=== PATIENT | female | born 1935 | race Caucasian/White ===

== ENCOUNTER 2025-02-01 18:47 | Outpatient (REF) | payer MEDICARE, MEDICAID, SELFPAY ==
--- OUTSIDE RECORDS SUMMARY | 2025-02-01 19:04 | XMS_ITS | Encounter Summary ---
Author Organization [employer] Address [id number] [address] [place] [address] Care Team Providers Care Recreational Counselor Name Role Phone No Pcp, No Pcp Primary Care Provider Unavailabl e Reason for Visit * Reason Onset Date Comments Referral to Neurology 01/03/2021 Encounter Details Date Type Department Care Team (Late st Contact Info) Description 01/03/2021 Telephone [facility] [address] [place] [address] Evonne Ordoñez Referral to Neurology Social History Tobacco Use Types Packs/Day Years Used Date Smoking Tobacco: Never Assessed Childcare Answer Date Recorded Childcare Unknown 03/17/2020 Employment Answer Date Recorded Employment Unknown 03/17/2020 Purpose - Life Answer Date Recorded Purpose and direction in life Unknown Comments Unknown Sex and Gender Information Value Date Recorded Sex Assigned at Not on file Legal Sex Female 5:56 PM EDT Gender Identity Not on file Sexual Orientation Not on file documented as of this encounter Miscellaneous Notes * Telephone Encounter - Evonne Ordoñez - 01/03/2021 11:07 AM EDT Received Referral to Neurology Dx: Parkinson's Disease Referred by Deyvi Kasper Referred to Dr. Polanco documented in this encounter Plan of Treatment Not on file documented as of this encounter Visit Diagnoses Not on filedocumented in this encounter Care Teams Recreational Counselor Relationship Specialty Start Date End Date No Pcp, [place] [address] PCP - General Family Medicine 03/17/20 documented as of this encounter
--- OUTSIDE RECORDS SUMMARY | 2025-02-01 19:04 | XMS_ITS | Clinical Summary ---
Author Organization [facility] Address [address], [address] [place] [address] Care Team Providers Care Merchandising Manager Name Role Phone Unavailable Primary Care Provider Unavailabl e Allergies Active Allergy Reactions Criticality Noted Date Comments Aspirin 07/28/2020 STOMACH BLEEDS Penicillins 06/28/2020 Medications carbidopa-levod opa (SINEMET) 25-100 MG per tablet 3.5 tablets by PEG Tube route 4 times daily (with meals and nightly) Give 3.5 tablet via PEG-tube 4 times a day for Parkinsons Active sotalol (BETAPACE) 120 MG tablet 120 mg by PEG Tube route 2 times daily Give 120mg via PEG-tube BID for BP Active tolterodine (DETROL) 2 MG tablet 2 mg by PEG Tube route 2 times daily Give 2mg vis PEG-tube BID for Bladder Active vitamin D (ERGOCALCIFEROL ) 1.25 MG (19289 UT) CAPS capsule Take 1 capsule by mouth once a week for 8 doses 8 capsule 06/30/19 21 Active Additional Information Patient taking differently:50,000 UnitsPEG TubeWEEKLY,Give 50,000 unit via PEG-tube one time a day every 7 days for Supplement, Reported on 07/28/2020 losartan (COZAAR) 100 MG tablet Take 1 tablet by mouth daily 30 tablet 3 07/07/19 21 Active Additional Information Patient taking differently:100 mgPEG TubeDAILY,Give 100mg via PEG-tube one time a day for BP, Reported on 07/28/2020 amLODIPine (NORVASC) 5 MG tablet 5 mg by PEG Tube route daily Give 1 tablet via PEG-tube one time a day for BP Active LORazepam (ATIVAN) 0.5 MG tablet 0.5 mg by PEG Tube route every 4 hours as needed for Anxiety. Give 0.5 mg via PEG-tube every 4 hrs as needed for agitation/anxiety Active bisacodyl (DULCOLAX) [address] 10 mg rectally daily as needed Insert 10mg rectally every 20 hrs as needed for constipation Active folic acid (FOLVITE) 1 MG tablet 1 mg by PEG Tube route daily Give 1 mg via PEG-tube one time a day for Supplement Active HYDROcodone-fide taminophen (NORCO) 5-325 MG per tablet Take 0.5 tablets by mouth every 4 hours as needed for Pain. Give 0.5 tablet via PEG-tube every 4 hrs as needed for pain for 7 days Active enoxaparin (LOVENOX) 30 MG/0.3ML injection Inject 30 mg into the skin 2 times daily Give 30mg subcutaneously BID for DVT Prophylaxis Active Mineral Oil OIL 15 mLs by PEG Tube route daily Give 15mL via PEG-tube one time a day for Bowels Active POLYETHYLENE GLYCOL 3350 PO Take 17 g by mouth daily as needed for Constipation Give 17 gram via PEG-tube every 24 hrs as needed for Constipation Active insulin detemir (LEVEMIR) 100 UNIT/ML injection vial Inject into the skin nightly Inject 20 units subcutaneously one time a day for DM Inject 10 unit subcutaneously once at bedtime for DM Active Cranberry-Vitam in C-Inulin (UTI-STAT) LIQD Take by mouth 2 times daily 30cc BID by mouth BID for preventative for 7 days Active Balsam Rolando-[place] Oil (VENELEX) OINT ointment Apply topically 3 times daily Apply to PEG-tube topically 3 times a day for PEG tube irrigation Active tuberculin 5 UNIT/0.1ML injection Inject 5 Units into the skin once Active ACETAMINOPHEN PO 20.3 mLs by PEG Tube route as needed 20.3 mL via PEG-Tube every 6hrs as needed for pain Active Cyanocobalamin 1000 MCG/15ML LIQD 1,000 mcg by PEG Tube route Give 1000mcg via PEG-tube in the morning for Supplement Active DOCUSATE SODIUM PO 5 mLs by PEG Tube route 2 times daily Give 5 mL via PEG-tube BID for constipation Active FERROUS SULFATE PO 5 mLs by PEG Tube route daily Give 5mL via PEG-tube one time a day for Supplement Active POTASSIUM CHLORIDE PO 20 mEq by PEG Tube route 2 times daily Give 20 mEq via PEG-tube BID for Supplement Active Active Problems Problem Noted Date Diagnosed Date Hyperglycemia 07/01/2020 Acute blood loss anemia 07/01/2020 SAH (subarachnoid hemorrhage) 06/29/2020 Closed comminuted intertrochanteric fracture of left femur 06/29/2020 Fall from standing 06/29/2020 Fall from standing 06/29/2020 SAH (subarachnoid hemorrhage) 06/27/2020 Displaced intertrochanteric fracture of left femur, initial encounter for closed fracture 06/27/2020 Resolved Problems Problem Noted Date Diagnosed Date Resolved Date Fall 07/29/2020 Social History Tobacco Use Types Packs/Day Years Used Date Smoking Tobacco: Former Smokeless Tobacco: Never Tobacco Cessation:Counseling Given: Yes Comments No Sex and Gender Information Value Date Recorded Sex Assigned at Not on file Legal Sex Female 11:16 AM EST Gender Identity Not on file Sexual Orientation Not on file Last Filed Vital Signs Vital Sign Reading Time Taken Comments Blood Pressure 139/55 07/07/2020 8:24 AM EST Pulse 72 07/07/2020 9:00 AM EST Temperature 36.9 C (98.4 F) 07/07/2020 8:24 AM EST Respiratory Rate 24 07/07/2020 9:00 AM EST Oxygen Saturation 93% 07/07/2020 9:00 AM EST Inhaled Oxygen Concentration - - Weight 75.8 kg (167 lb) 09/01/2020 11:12 AM EDT Height 175.3 cm (5' 9 ) 09/01/2020 11:12 AM EDT Body Mass Index 24.66 09/01/2020 11:12 AM EDT Plan of Treatment Health Maintenance Due Date Last Done Comments Depression Screen 1947 DTaP/Tdap/Td vaccine (1 - Tdap) 11/03/1954 Shingles vaccine (1 of 2) 11/03/1985 Respiratory Syncytial Virus (RSV) or age 60 yrs+ (1 - 1-dose 75+ series) 11/03/2010 Pneumococcal 50+ years Vaccine (2 of 2 - PCV20 or PCV21) 09/26/2016 09/27/2015, 09/27/2015 Flu vaccine (#1) 12/24/2024 03/17/2020, 03/2019, 05/26/2018, Additional history exists COVID-19 Vaccine ( season) 2025 06/26/2020, 06/05/2020 Hepatitis A vaccine Aged Out No longe r eligible based on patient's age to complete this topic Hepatitis B vaccine Aged Out No longe r eligible based on patient's age to complete this topic Hib vaccine Aged Out No longer eligi ble based on patient's age to complete this topic Meningococcal (ACWY) vaccine Aged Out No longer eligible based on patient's age to complete this topic Meningococcal B vaccine Aged Out No l onger eligible based on patient's age to complete this topic Polio vaccine Aged Out No longer elig ible based on patient's age to complete this topic Medical Devices Implanted Type Area Machine Adjuster Device Identifier Shelf Expiration Date Model / Serial / Lot Screw Bne L36mm Dia5mm Nonsterile Tim Grn Ti St Charleen Full Implanted:Qty: 1 on 06/28/2020 by Bhupendra Yousif DO at [facility] Left: Femur DEPE[employer]-Ticket [id number] / / Nail Im [id number] [id number] 125deg Sht Trochanteric Fem Grn Ti Implanted:Qty: 1 on 06/28/2020 by Bhupendra Yousif DO at [facility] Left: Femur [employer]-Ticket 03/25/2021 [id number] / / [id number] Blade Surg L95mm [id number] Gld Ti Helcl Implanted:Qty: 1 on 06/28/2020 by Bhupendra Yousif DO at [facility] Left: Femur DEPUY [employer] [id number] / / Insurance [employer]NA [facility] DUAL * Guarantor: YI MATT Account Type Relation to Patient Date of Phone Billing Address Personal/Family [phone] [place] [address] Advance Directives Documents on File Type Date Recorded Patient Java Developer Expl anation ACP-Do Not Resuscitate 07/10/2020 4:37 PM ACP-Power of Authorization Manager 07/10/2020 4:37 PM ACP-Advance Directive 06/28/2020 1:19 PM ACP-Advance Directive 06/28/2020 1:17 PM * DNR-CCA (Latest Code Status on File) Date Activated Date Inactivated Comments 06/28/2020 6:43 PM 07/07/2020 12:14 PM * DNR-CCA Date Activated Date Inactivated Comments 06/28/2020 2:02 PM 06/28/2020 6:43 PM * DNR-CCA Date Activated Date Inactivated Comments 06/28/2020 12:08 AM 06/28/2020 3:12 PM * Full Code Date Activated Date Inactivated Comments 06/27/2020 9:18 PM 06/28/2020 12:04 AM Healthcare Agents on File Name Relationship Healthcare Agent Relationship Communication Elen Giang angelmarquis Child Primary Decision Make r
--- OUTSIDE RECORDS SUMMARY | 2025-02-01 19:04 | XMS_ITS | Encounter Summary ---
Author Organization [employer] Address [facility] [id number] [address] [place] [address] Care Team Providers Care Package Pick Up Name Role Phone No Pcp, No Pcp Primary Care Provider Unavailabl e Encounter Details Date Type Department Care Team (Late st Contact Info) Description 03/27/2021 Orders Only [facility] [address] [place] [phone] External, Scanning Provider Social History Tobacco Use Types Packs/Day Years Used Date Smoking Tobacco: Never Smokeless Tobacco: Never Alcohol Use Standard Drinks/Week Comments Not Currently 0 (1 standard drink = 0.6 oz pur e alcohol) Childcare Answer Date Recorded Childcare Unknown 03/17/2020 Employment Answer Date Recorded Employment Unknown 03/17/2020 Purpose - Life Answer Date Recorded Purpose and direction in life Unknown Comments Unknown Sex and Gender Information Value Date Recorded Sex Assigned at Not on file Legal Sex Female 5:56 PM EDT Gender Identity Not on file Sexual Orientation Not on file COVID-19 Exposure Response Date Recorded In the last month, have you been in contact with someone who was confirmed or suspected to have Coronavirus / COVID-19? No / Unsure 03/07/2021 10:51 AM EDT documented as of this encounter Plan of Treatment Not on file documented as of this encounter Procedures Procedure Name Priority Date/Time Associated Diagnosis Comments CT BRAIN WO CONT Routine 03/14/2021 documented in this encounter Results * CT brain without contrast (03/14/2021) Anatomical Region Laterality Modality Neuro, Head, Head and Neck, Neuro Covera N/A Computed Tomography us Scanning Provider External IMG CT ORDERABLES Fin al Result documented in this encounter Visit Diagnoses Not on filedocumented in this encounter Care Teams Package Pick Up Relationship Specialty Start Date End Date No Pcp, [place] [address] PCP - General Family Medicine 03/17/20 documented as of this encounter
--- OUTSIDE RECORDS SUMMARY | 2025-02-01 19:04 | XMS_ITS | Encounter Summary ---
Author Organization [employer] Address [facility] [id number] [address] [place] [address] Care Team Providers Care Leather Production Artisan Name Role Phone No Pcp, No Pcp Primary Care Provider Unavailabl e Encounter Details Date Type Department Care Team (Late st Contact Info) Description 03/19/2021 Orders Only [facility] [address] [place] [phone] External, Scanning Provider Social History Tobacco Use [...] Procedure Name Priority Date/Time Associated Diagnosis Comments MR BRAIN W WO CONT Routine 03/16/2021 documented in this encounter Results * MR brain with and without contrast (03/16/2021) Anatomical Region Laterality Modality Neuro, Head, Head and Neck, Neuro Covera N/A Magnetic Resonance us Scanning Provider External IMG MRI ORDERABLES Fi nal Result documented in this encounter Visit Diagnoses Not on filedocumented in this encounter Care Teams Leather Production Artisan Relationship Specialty Start Date End Date No Pcp, [place] [address] PCP - General Family Medicine 03/17/20 documented as of this encounter
--- OUTSIDE RECORDS SUMMARY | 2025-02-01 19:04 | XMS_ITS | Encounter Summary ---
Author Organization [employer] Address [facility] [id number] [address] [place] [address] Care Team Providers Care Veterans Services Specialist Name Role Phone No Pcp, No Pcp Primary Care Provider Unavailabl e Reason for Visit * Reason Onset Date Comments Reschd appt 07/30/2021 Encounter Details Date Type Department Care Team (Late st Contact Info) Description [facility] [address] [place] [address] Evonne Ordoñez Reschd appt Social History Tobacco Use Types Packs/Day Years [...] * Telephone Encounter - Evonne Ordoñez - 07/30/2021 9:12 AM EST Patient's appointment needs to be rescheduled at this time due to provider out of clinic. Called and left message and sent letter. Date: 08/29/21 Provider: Dr. Polanco Rescheduling Instructions: Next Available documented in this encounter Plan of Treatment Not on file documented as of this encounter Visit Diagnoses Not on filedocumented in this encounter Care Teams Veterans Services Specialist Relationship Specialty Start Date End Date No Pcp, [place] [address] PCP - General Family Medicine 03/17/20 documented as of this encounter
--- OUTSIDE RECORDS SUMMARY | 2025-02-01 19:04 | XMS_ITS | Clinical Summary ---
Author Organization [employer] Address [facility] [id number] [address] [place] [address] Care Team Providers Care Cold Storage Supervisor Name Role Phone No Pcp, No Pcp Primary Care Provider Unavailabl e Allergies Active Allergy Reactions Criticality Noted Date Comments Aspirin 07/28/2020 STOMACH BLEEDS Penicillins 06/28/2020 Sulfa (Sulfonamide Antibiotics) 12/26 Medications acetaminophen (TYLENOL EXTRA STRENGTH) 500 mg tablet Take 2 tablets (1,000 mg total) by mouth every 6 (six) hours as needed. Active amLODIPine (NORVASC) 5 mg tablet Take 5 mg by mouth in the morning. 01/30/2021 Active bisacodyL (DULCOLAX) 10 mg suppository Insert 10 mg into the rectum. Active carbidopa-levodo pa (SINEMET) 25-100 mg per tablet Take 3 tablets by mouth 3 (three) times a day. 01/30/2021 Active ciclopirox (PENLAC) 8 % solution 12/29/2020 Active ergocalciferol (DRISDOL) 1,250 mcg (50,000 unit) capsule Take 1 capsule (50,000 Units total) by mouth. 06/30/2020 Active furosemide (LASIX) 20 mg tablet 02/01/2021 Active HYDROcodone-acet aminophen (NORCO) 5-325 mg per tablet Take 0.5 tablets by mouth. Active losartan (COZAAR) 100 mg tablet 01/30/2021 Active metFORMIN (GLUCOPHAGE) 500 mg tablet Take 1 tablet (500 mg total) by mouth in the morning and 1 tablet (500 mg total) in the evening. Take with meals. 01/30/2021 Active metOLazone (ZAROXOLYN) 2.5 mg tablet 02/22/2021 Active mirtazapine (REMERON) 7.5 mg tablet 01/30/2021 Active potassium chloride (KLOR-CON) 20 mEq packet 02/25/2021 Active sotaloL (BETAPACE) 120 mg tablet Take 120 mg by mouth in the morning and 120 mg before bedtime. 01/30/2021 Active tolterodine (DETROL) 2 mg tablet 01/30/2021 Active polyethylene glycol (GLYCOLAX) 17 gram packet Take 17 g by mouth in the morning. Active ibuprofen (MOTRIN) 400 mg tablet Take 1 tablet (400 mg total) by mouth in the morning and at bedtime. Active psyllium (METAMUCIL) 3.4 gram packet Take 1 packet (3.4 g total) by mouth in the morning. Active magnesium hydroxide (magnesium hydroxide) 400 mg/5 mL suspension Take 30 mL by mouth nightly as needed. Active mineral oil (MURI-LUBE) oil 15 mL as needed (constipatio n). Active sennosides-docus ate sodium (SENOKOT-S) 8.6-50 mg Take 2 tablets by mouth in the morning. Active cyanocobalamin (vitamin B-12) 1000 MCG tablet Take 1 tablet (1,000 mcg total) by mouth in the morning. Active sotaloL (BETAPACE) 80 mg tablet Take 0.5 tablets (40 mg total) by mouth in the morning and at bedtime. 11/07/2022 Active Active Problems Problem Noted Date Diagnosed Date Hyperglycemia 07/01/2020 Fall from standing 06/29/2020 Closed comminuted intertrochanteric fracture of left femur 06/27/2020 SAH (subarachnoid hemorrhage) 06/27/2020 Immunizations Immunization Administration Dates Next Due H1N1 Inj Preservative Free 05/31/2009 Influenza High Dose Preservative Free IM 016 Influenza, Im Trivalent Preservative 05/26/2018 Influenza, Injectable, quadrivalent (PF) 020 Influenza, Trivalent, Adjuvanted 04/05/2019,2018,04/05/2017 Pneumococcal Conjugate 13-Valent 09/27/2015 Social History Tobacco Use Types Packs/Day Years Used Date Smoking Tobacco: Never Smokeless Tobacco: Never Tobacco Cessation:Counseling Given: Not Answered Alcohol Use Standard Drinks/Week Comments Not Currently 0 (1 standard drink = 0.6 oz pur e alcohol) PHQ-2 Answer Date Recorded Total Score 7 11/27/2022 Childcare Answer Date Recorded Childcare Unknown 03/17/2020 [...] Sign Reading Time Taken Comments Blood Pressure 131/56 11/27/2022 2:38 PM EDT Pulse 71 11/27/2022 2:38 PM EDT Temperature - - Respiratory Rate - - Oxygen Saturation - - Inhaled Oxygen Concentration - - Weight 67.6 kg (149 lb) 03/07/2021 11:24 AM EDT Height 165.1 cm (5' 5 ) 01/23/2022 1:33 PM EDT Body Mass Index 24.79 03/07/2021 11:24 AM EDT Plan of Treatment Health Maintenance Due Date Last Done Comments Tobacco Screening 1947 DTaP,Tdap and Td Vaccines (1 - Tdap) 11[birth year]03/1954 Zoster (Shingles) Vaccine (1 of 2) 11/03/1985 Fall Risk Screening 01/23/2023 01/23/2022 Depression Screening 11/28/2023 11/27/2022 COVID-19 Vaccine (2023-2 5 season) 2024 07/12/2022, 08/29/2021, 03/13/2021, Additional history exists Influenza Vaccine 01/24/2025 03/17/2020, , 05/26/2018, Additional history exists Medical Devices Not on file Insurance MEDICARE [facility] Care Teams Cold Storage Supervisor Relationship Specialty Start Date End Date No Pcp, No Pcp [place] [id number] PCP - General Family Medicine 03/17/20
[2025-02-01 19:28] LABS: Alanine Aminotransferase 10 U/L (14-59); Albumin Globulin Ratio 0.6; Albumin Level 2.9 g/dL (3.4-5.0); Alkaline Phosphatase 119 U/L (46-116); Anion Gap 20.5; Aspartate Amino Transferase 14 U/L (15-37); Calcium 9.6 mg/dL (8.5-10.1); Carbon Dioxide 21.0 mmol/L (21.0-32.0); Chloride 110 mmol/L (98-107); Estimated GFR (African America 26 (>=60 mL/min/1.73m^2); Estimated GFR (Non-African Ame 21 (>=60 mL/min/1.73m^2); Globulin 4.9 g/dL; Hematocrit 39.7 % (36.0-48.0); Hemoglobin 13.2 g/dL (12.0-16.0); Mean Corpuscular HGB Conc 33.2 g/dL (29.9-35.2); Mean Corpuscular Hemoglobin 33.5 pg (26.7-34.0); Mean Corpuscular Volume 100.8 fL (81.0-99.0); Platelet Count 563 10^3/uL (150-450); Potassium 4.5 mmol/L (3.5-5.1); Red Blood Count 3.94 10^6/uL (4.20-5.40); Sodium 147 mmol/L (136-145); Total Protein 7.8 g/dL (6.4-8.2); White Blood Count 25.9 10^3/uL (4.0-11.0)
[2025-02-01 19:51] LABS: Glucose Urine UA NEGATIVE (NEGATIVE)
[2025-02-01 19:54] LABS: Basophils Abs Manual 0.00 10^3/uL (0.00-0.10); Basophils Percent Manual 0.0 % (0.2-2.0); Eosinophils Absolute Manual 0.00 10^3/uL (0.00-0.70); Eosinophils Percent Manual 0.0 % (0.9-7.0); Lymphocytes Absolute Manual 2.07 10^3/uL (1.20-3.80); Lymphocytes Percent Manual 8.0 % (20.5-60.0); Monocytes Absolute Manual 1.03 10^3/uL (0.30-0.80); Monocytes Percent Manual 4.0 % (1.7-12.0); Segmented Neut Absolute Manual 22.79 10^3/uL (1.4-6.5); Segmented Neutrophils % Manual 88.0 (43.0-75.0)
[2025-02-01 20:05] LABS: Blood Urea Nitrogen 93.0 mg/dL (7.0-18.0); Glucose 783 mg/dL (74-106); NT Pro B Type Natriuretic Pept 24098.0 pg/mL (<=1800.0)
== END 2025-02-01 18:48 | disposition home or self-care (01) ==
LOC: LAB 18:47
PROVIDERS: PCP Family Medicine; Visit Provider Family Medicine
DX: I50.9 Heart failure, unspecified (principal); I51.9 Heart disease, unspecified
CPT/HCPCS: 36415; 80053; 81003; 83880; 85007; 85027; 87086